=== PATIENT | male | born 1985 | race Caucasian/White ===

== ENCOUNTER 2020-11-27 16:04 | Emergency (ER) | payer SELFPAY ==
[2020-11-27 16:08] VITALS: BP 147/86; PULSE 64; RESP 16; TEMP 36; O2SAT 98; BMI 29.5
--- NOTE | 2020-11-27 16:43 | ED.RN ---
PT REPORTS THAT HE NO LONGER WANTS TO FILE WORKMANS COMP. SUSANA D/C.
--- NOTE | 2020-11-27 18:23 | EDS_ITS ---
HPI History of Present Illness Chief Complaint: Laceration Detail of Chief Complaint: Laceration right small finger Informant: patient Narrative Narrative: Patient presents to the emergency department with laceration to his right small finger that occurred yesterday while at work. Patient does not want to file it under Workmen's Comp. Patient states that he got his hand caught between a trailer and some steel and he pulled his hand out lacerated the top of the finger. Patient is right-hand dominant. Patient unsure of his last tetanus. Patient states that his girlfriend made to come in and get evaluated. Tetanus Immunization: Unknown [facility] Medical History (Updated 11/27/20 @ 18:[address] Anastacia Bonilla, DO) Substance abuse Home Medications buprenorphine-naloxone [Suboxone 4 mg-1 mg Sl Film] 4 ea SUBLINGUAL DAILY 04/11/17 [History Last Taken Unknown] cephalexin 500 mg PO Q6 #40 capsule 11/27/20 [Rx Last Taken Unknown] Allergy/AdvReac Type Severity Reaction Status Date / Time No Known Allergies Allergy Verified 11/27/20 16:04 Social History Smoking Status: Current every day smoker tobacco type: smokeless tobacco ROS ROS ED Constitutional Constitutional ED: Reports systems reviewed and no addt'l complaints, except as documented; Denies body ache(s), change in weight or chills Eyes Eyes: Denies acute decrease in peripheral vision, change in vision, double vision or loss of vision ENT ENT ED: Reports none; Denies ear pain, lip swelling, loss taste/smell, neck pain, otalgia or sore throat Cardiovascular Cardiovascular: Reports none; Denies abdominal pain, chest pain with activity, leg edema, lightheadedness, palpitations, rapid heart rate or syncope Respiratory/Chest Respiratory/Chest: Reports none; Denies change in mental status, dry cough, dyspnea, hemoptysis, shortness of breath at rest or shortness of breath with e xertion Gastrointestinal Gastrointestinal: Reports none; Denies abdominal pain, change in stool charact er, diarrhea, hematemesis, hematochezia, melena, rectal bleeding or vomiting Genitourinary Genitourinary ED: Reports none; Denies abdominal discomfort, anuria, dysuria, genital pain or polyuria Musculoskeletal Musculoskeletal: Reports none and other Details: Laceration right small finger ; Denies arthralgias, back pain, difficulty walking, extremity pain, muscle weakness or myalgias Integumentary Reports none; Denies abscess or rash Neurologic Neurologic: Reports none; Denies abnormal gait, confusion, focal weakness, frequent falls, headache(s), loss of vision, numbness, paresthesias, radicular pain, vertigo or weakness Psychiatric Psychiatric: Reports systems reviewed and no addt'l complaints, except as documented and none; Denies behavioral changes, confusion, difficulty concentrating, hallucinations, suicidal ideation, tactile hallucinations or visual hallucinations Endocrine Endocrinology: Denies none, cold intolerance, excessive sweating, fatigue or heat intolerance Hematologic/Lymphatic Hematologic/Lymphatic: Reports none; Denies anemia, easy bleeding or easy bruising Allergic/Immunologic Allergic/Immunologic ED: Denies as per HPI, none, lip swelling, mouth swelling, throat swelling, tongue swelling or hives EXAM Physical Exam Const Vital Signs: 11/27/20 16:08 Temperature 96.8 F L Temperature Source Temporal Pulse Rate 64 Respiratory Rate 16 Blood Pressure 147/86 H Blood Pressure Mean 106 Pulse Ox 98 Oxygen Delivery Method Room Air Positive well nourished and well developed General Appearance ED: well developed and NAD HEENT Reports TM's clear and moist mucous membranes normocephalic and atraumatic; Negative for trauma or tenderness Tympanic Membrane ED: Yes TM's clear Eyes PERRL and EOMs intact bilaterally General Eye ED: Negative for pale conjunctiva or scleral icterus Neck no lymphadenopathy, supple and no JVD General: Negative for tenderness Chest Wall inspection of chest normal and palpation of chest normal Chest: Negative for tenderness Resp normal respiratory effort and clear to auscultation bilaterally Effort and Inspection: Negative for respiratory distress or pain with movement Auscultation: Negative for rhonchi, wheezes or diminished lung sounds Cardio regular rate, regular rhythm, S1 normal heart sound, S2 normal heart sound and no murmurs Peripheral Pulses: pulses 2+ throughout GI normal to inspection, nondistended, normoactive bowel sounds, soft to palpation, non-tender, non-distended and no masses Back/Spine no CVA tenderness and no thoracic nor lumbar tenderness Extremity normal to inspection Extremity Narrative: Evaluation of the right small finger reveals a flap-like laceration over the PIP joint dorsal surface. Patient is able to flex and extend the digit at the DIP and PIP without difficulty. General Extremety ED: Negative for edema General Extremity: Negative for edema Neuro oriented x3, CN's II-XII intact bilaterally, no sensory deficits noted and gait normal Sensorium / Orientation: awake, alert, oriented to person, oriented to place and oriented to time Motor Exam: strength 5/5 throughout and strength abnormal Psych mental status grossly normal Skin no rashes or lesions noted and no wounds MDM MDM MDM Narrative Medical decision making narrative: I felt the laceration needed washed/irrigated and wound edges approximated at as it was a large flap that was still oozing. Patient was started on Keflex. Patient will be referred to primary care physician for follow-up for suture removal in 10 days. He is advised to return if worsening pain, increased redness or swelling, or conditions worsen anyway. Procedures Lacerations 3.5 cm flap-like laceration over the dorsum of the right small finger: Length: 3 ft 6 in Depth: Sub Q Prep: Sterile Conditions Laceration repair: Digital block Irrigated (ml): 100 Number of Sutures/Melissa: 3 Suture Information: Ethilon Comment: Patient had a digital block performed with 1% lidocaine total of 8 cc used. The flap was irrigated and cleansed with saline. There was no evidence of involvement of the joint or tendon. Using 5-0 nylon a total of 3 single erupted sutures used to loosely approximate the wound edges given that the laceration occurred more than 24 hours ago. Patient had a clean dressing applied. Discharge Plan Triage Chief Complaint: Laceration ED Provider: Anastacia Bonilla Dx/Rx/DC Orders Clinical Impression: Finger laceration Instructions: ED Laceration, Hand: All Closures Prescriptions: New cephalexin [cephalexin] 500 MG capsule 500 mg PO Q6 Qty: 40 RF: 0 No Action buprenorphine-naloxone [Suboxone] 1 EACH film 4 ea sublingual DAILY RF: 0 Primary Care Provider: Care Physician,No Primary Referrals: Rosendo Sarkar MD [STAFF PHYSICIAN] - 10 Day for suture removal Care Physician,No Primary [Primary Care Provider] -
[2020-11-27] MEDS: Diphth,Pertuss(Acell),Tet Vac 0.5 ML Vial IM (18:46)
[2020-11-27] MEDS: Cephalexin 250 MG Capsule 500 MG PO (18:46)
[2020-11-27 18:52] VITALS: BP 138/70; PULSE 85; RESP 12; O2SAT 96
== END 2020-11-27 18:58 | disposition home or self-care (01) ==
PROVIDERS: Emergency Provider Emergency Medicine
DX: S61.216A Laceration without foreign body of right little finger without damage to nail, initial encounter (principal); W23.1XXA Caught, crushed, jammed, or pinched between stationary objects, initial encounter; Y93.89 Activity, other specified; Y92.9 Unspecified place or not applicable; Y99.9 Unspecified external cause status; F17.200 Nicotine dependence, unspecified, uncomplicated
CPT/HCPCS: 12002; 90471; 90715; 99283

== ENCOUNTER 2020-12-31 18:20 | Emergency (ER) | payer MEDICARE, SELFPAY ==
[2020-12-31 18:21] VITALS: BP 134/81; PULSE 86; RESP 15; TEMP 36.4; O2SAT 98; BMI 28.7
[2020-12-31 19:52] VITALS: BP 136/77; PULSE 82; RESP 15; TEMP 37; O2SAT 99
[2020-12-31] MEDS: Acetaminophen 500 MG Tablet 1000 MG PO (19:54)
[2020-12-31 19:55] VITALS: O2SAT 99
--- NOTE | 2020-12-31 20:00 | RAD_ITS ---
STUDY: X-RAY CHEST REASON FOR EXAM: Male, 35 years old. Cough TECHNIQUE: Single frontal view of the chest. COMPARISON: None. FINDINGS: There is a right basilar patchy opacity. Normal size heart. Normal mediastinum and brijesh. Normal visualized pulmonary arteries. Normal visualized aortic arch and descending thoracic aorta. Normal visualized thoracic spine. Normal visualized ribs, clavicles, and shoulders. There is no demonstrated abnormality of the visualized soft tissue structures of the upper abdomen. RAD/Chest 1 View (Portable) IMPRESSION: Right basilar patchy opacity concerning for underlying pneumonia. Electronically Signed: Dory Lu MD at 20:40 EDT Tel , Service support ,
[2020-12-31 20:21] LABS: ALB/GLOB Ratio 0.8 RATIO (0.9-2.4); AST(SGOT) 143 U/L (15-37); Alanine Aminotransfer ALT/SGPT 151 U/L (16-61); Alkaline Phosphatase 63 U/L (45-117); Anion Gap 10 (5-15); BUN 10 mg/dL (7-18); BUN/Creat Ratio 11.3 RATIO (10-20); Calcium,Total 9.6 mg/dL (8.5-10.1); Chloride 97 mmol/L (98-107); Creatinine, Serum 0.89 mg/dL (0.70-1.30); EST Glomerular Filtration Rate 103 mL/min (>60); Est Glom Filt Rate - Afr Amer 125 mL/min (>60); Estimated Creatinine Clearance 137.14 ml/min; Globulin 4.8 g/dL (2.2-4.2); Glucose 93 mg/dL (74-106); Potassium 3.7 mmol/L (3.5-5.1); Protein, Total 8.8 g/dL (6.4-8.2); Sodium Level 134 mmol/L (136-145)
[2020-12-31 20:28] VITALS: BP 132/87; PULSE 80; RESP 15; TEMP 36.6; O2SAT 95
[2020-12-31 20:36] LABS: Absolute Lymphocyte Count 0.51 X10^3/uL (0.83-4.51); Absolute Neutrophil Count 1.2 X10^3/uL (2.0-7.7); Basophil# 0.01 X10^3/uL; Basophil% 0.5 % (0-1); Differential Indicated SCAN CRITERIA MET; Eosinophil# 0.01 X10^3/uL; Eosinophils% 0.5 % (0-5); Hematocrit 48.4 % (40-54); Hemoglobin 17.2 g/dL (13.0-16.5); Lymphocyte # 0.51 X10^3/ul (0.83-4.51); Lymphocyte % 24.5 % (19-41); Mean Corp Hgb Conc 35.5 g/dL (32-36); Mean Corpuscular Hgb 32.1 pg (27.0-32.0); Mean Corpuscular Volume 90.5 fL (80-94); Mean Platelet Vol. 11.3 fl (6.2-12.0); Monocyte# 0.31 X10^3/uL; Monocyte% 14.9 % (0-10); NRBC Flagged by Analyzer 0 % (0-5); Neutrophil # 1.24 X10^3/uL (2.7-7.7); Neutrophil % 59.6 % (47-70); POSITIVE DIFFERENTIAL YES; Platelet Count 113 K/mm3 (150-450); RBC Distribution Width CV 11.6 % (11.6-14.6); RBC Distribution Width SD 38.3 fl (35.1-43.9); Red Blood Count 5.35 M/mm3 (4.6-6.2); White Blood Count 2.1 K/mm3 (4.4-11.0)
[2020-12-31 21:01] LABS: Platelet Estimate SLT DEC (ADEQ); Red Cell Morphology NORM C+C NORMAL (NORM C&C)
--- NOTE | 2020-12-31 22:31 | EDS_ITS ---
HPI History of Present Illness Chief Complaint: Cough Informant: patient Onset/Context/Timing Onset: Days (8-9) Context: Gradual Onset Timing: Continuous Quality: Aching Location: Generalized Worsened by: Movement Relieved by: Nothing Narrative Narrative: Patient admits to cough, shortness of breath, headache, and sweats that have been getting worse over the past 8 to 9 days. Patient states he feels like he has Covid. Patient does admit to loss of taste and loss of smell. Patient states his fever at home was up to 101. Patient admits to some rhinorrhea. Patient states he has coughing up some bloody sputum. Patient states he has generalized body aches but has sharp back pain. Patient states his pain is worse with any movement. Patient also admits to a headache. Patient admits to nausea and vomiting but denies any diarrhea. Patient denies any hematemesis or coffee-ground emesis. [facility] Medical History Substance abuse Home Medications buprenorphine-naloxone [Suboxone 4 mg-1 mg Sl Film] 4 ea SUBLINGUAL DAILY 04/11/17 [History Last Taken Unknown] Allergy/AdvReac Type Severity Reaction Status Date / Time No Known Allergies Allergy Verified 12/31/20 18:23 no surgical history Social History Smoking Status: Current every day smoker tobacco type: cigarettes and smokeless tobacco ROS ROS ED Constitutional Constitutional ED: Reports fever(s) and sweats Eyes Eyes: Denies blurry vision or change in vision ENT ENT ED: Reports rhinorrhea; Denies sore throat Cardiovascular Cardiovascular: Denies chest pain or palpitations Respiratory/Chest Respiratory/Chest: Reports cough, dyspnea and sputum Gastrointestinal Gastrointestinal: Reports nausea and vomiting; Denies diarrhea Genitourinary Genitourinary ED: Denies dysuria or hematuria Musculoskeletal Musculoskeletal: Reports back pain, myalgias and neck pain Integumentary Denies abscess or rash Neurologic Neurologic: Reports headache(s); Denies weakness Allergic/Immunologic Allergic/Immunologic ED: Denies mouth swelling, tongue swelling or urticaria EXAM Physical Exam Const Vital Signs: 12/31/20 18:21 12/31/20 19:52 12/31/20 19:55 Temperature 97.6 F L 98.6 F Temperature Source Temporal Oral Pulse Rate 86 82 Respiratory Rate 15 15 Respiratory Effort Normal Non-Labored Respiratory Depth Normal Respiratory Pattern Normal Blood Pressure 134/81 H 136/77 H Blood Pressure Mean 98 96 Pulse Ox 98 99 Oxygen Delivery Method Room Air Room Air Room Air 12/31/20 20:28 12/31/20 22:46 Temperature 98 F Temperature Source Temporal Pulse Rate 80 66 Respiratory Rate 15 16 Respiratory Effort Respiratory Depth Respiratory Pattern Blood Pressure 132/87 H 126/84 H Blood Pressure Mean 102 Pulse Ox 95 95 Oxygen Delivery Method Room Air Positive well nourished and well developed General Appearance ED: well developed HEENT Reports moist mucous membranes Neck supple and no JVD Resp normal respiratory effort and clear to auscultation bilaterally Cardio regular rate, regular rhythm and no murmurs GI normal to inspection, nondistended, normoactive bowel sounds and non-tender Palpation: soft Extremity normal to inspection General Extremety ED: Negative for edema or tenderness General Extremity: Negative for edema Neuro oriented x3, CN's II-XII intact bilaterally and no sensory deficits noted Sensorium / Orientation: alert Motor Exam: strength 5/5 throughout Psych mental status grossly normal Skin no rashes or lesions noted MDM MDM MDM Narrative Medical decision making narrative: Patient was given 500 cc bolus of normal saline. Patient was given Tylenol. CBC shows a white blood cell count of 2.1. Hemoglobin was slightly elevated at 17.2. Comprehensive metabolic profile was essentially within normal limits. AST and ALT were slightly elevated at 143 and 151. Portable chest x-ray was obtained. There is 1 view. On my interpretation, there is a questionable right lower lobe infiltrate. Bony thorax is normal. There is no cardiomegaly. Radiologist also interpreted the x-ray and agrees. Patient feels better on reevaluation. Patient was instructed to continue Tylenol as needed for any aches or fevers. Patient was instructed to follow-up with his primary care physician in 5 to 7 days. Patient understood and was agreeable with the plan. All questions were answered. Lab Data Attestation: I reviewed the patient's lab results. Labs: Laboratory Results - last 24 hr 12/31/20 12/31/20 19:49 20:28 WBC 2.1 L RBC 5.35 Hgb 17.2 H Hct 48.4 MCV 90.5 MCH 32.1 H MCHC 35.5 RDW Std Deviation 38.3 RDW Coeff of Lex[place] 11.6 Plt Count 113 L MPV 11.3 Immature Gran % (Auto) 0.000 Neut % (Auto) 59.6 Lymph % (Auto) 24.5 [place] % (Auto) 14.9 H Eos % (Auto) 0.5 Baso % (Auto) 0.5 Absolute Neuts (auto) 1.2 L Absolute Lymphs (auto) 0.51 L Nucleated RBC % 0 Differential Comment Diff Path Review May foll Platelet Estimate SLT DEC RBC Morphology NORM C+C Sodium 134 L Potassium 3.7 Chloride 97 L Carbon Dioxide 27.0 Anion Gap 10 BUN 10 Creatinine 0.89 Estim Creat Clear Calc 137.14 Est GFR (MDRD) Af Amer 125 Est GFR (MDRD) Non-Af 103 BUN/Creatinine Ratio 11.3 Glucose 93 Calcium 9.6 Total Bilirubin 1.00 AST 143 H ALT 151 H Alkaline Phosphatase 63 Total Protein 8.8 H Albumin 4.0 Globulin 4.8 H Albumin/Globulin Ratio 0.8 L Radiography Chest X-Ray - ED: 1 View, Read by ED Physician, Read by Radiologist and Right Infiltrate Diagnostic Testing: Radiology Impression Chest X-Ray 12/31/20 20:00 IMPRESSION: Right basilar patchy opacity concerning for underlying pneumonia. Electronically Signed: Dory Lu MD at 20:40 EDT Tel , Service support , Discharge Plan Triage Chief Complaint: Cough ED Provider: Rosendo Gaffney Dx/Rx/DC Orders Clinical Impression: Pneumonia due to COVID-19 virus Instructions: Coronavirus Disease 2019 (COVID-19): Overview Prescriptions: No Action buprenorphine-naloxone [Suboxone] 1 EACH film 4 ea sublingual DAILY RF: 0 Primary Care Provider: Care Physician,No Primary Referrals: Care Physician,No Primary [Primary Care Provider] - Disposition Disposition: Home, Self Care Discharge Date/Time: 12/31/20 22:49
[2020-12-31 22:46] VITALS: BP 126/84; PULSE 66; RESP 16; O2SAT 95
[2021-01-01 11:51] LABS: Pathologist Review Reviewed
== END 2020-12-31 22:49 | disposition home or self-care (01) ==
PROVIDERS: Emergency Provider Emergency Medicine
DX: U07.1 COVID-19 (principal); J12.82 Pneumonia due to coronavirus disease 2019; F17.210 Nicotine dependence, cigarettes, uncomplicated; F17.290 Nicotine dependence, other tobacco product, uncomplicated
CPT/HCPCS: 71045; 80053; 85025; 87426; 99285; J7030